=== PATIENT | male | born 1970 | race African-American/Black ===

== ENCOUNTER 2016-08-11 07:53 | Inpatient (IN) | payer OTHER ==
[~2016-08-11] VITALS: Ht 172.7 cm; Wt 100.0 kg
[~2016-08-11 07:53] MED LIST: DOXY100T PO
[2016-08-11 07:55] VITALS: BP 165/85; PULSE 96; RESP 18; TEMP 98.2; O2SAT 98
--- NOTE | 2016-08-11 08:10 | PD ---
HPI Chief Complaint: Complaint Time Seen by Provider: 08:10 Travel History International Travel<30 days: No Contact w/Intl Traveler<30days: No Traveled to known affect area: No History of Present Illness HPI 46-year-old male came to the emergency room with history of scrotal pain and swelling. Patient says that it has been draining a little since yesterday. There is foul-smelling discharge from the drainage. Patient has had the pain since which was 4 days ago. It has progressively worsened. Yesterday he had 2 syncopal episodes. Today he is in severe pain and was diaphoretic from the discomfort. Vital signs were otherwise stable. No history of fever or chills. Patient is having hard time walking because of the pain. The pain is just there but worsens when he sits or walks. It's a little bit better when he is laying flat. He has had these symptoms in the past that required incision and drainage. Patient is diabetic but says he does mostly diet control and not on any medications. He last ate at 5 this morning and he ate some hot dog. [facility] Past Medical History Narrative Medical List of his past medical history is reviewed from the nursing note. Hx Anticoagulant Therapy: No Blood Disorders: No Heart Rhythm Problems: No Cancer: No Cardiovascular Problems: No High Cholesterol: Yes (DIET CONTROLLED) Chemotherapy: No Chest Pain: No Congestive Heart Failure: No Cerebrovascular Accident: No Diabetes: No Diminished Hearing: No Endocrine: No Genitourinary: No Immune Disorder: No Musculoskeletal: No Neurologic: No Psychiatric: No Reproductive: Yes (SCROTAL ABCESSES X 3 MOS) Respiratory: Yes Migraines: No Seizures: No Thyroid Disease: No Past Surgical History Abdominal Surgery: No Ear Surgery: No Endocrine Surgery: No Eye Surgery: No Genitourinary Surgery: No Gynecologic Surgery: No Hysterectomy: No Oral Surgery: Yes (TOOTH SURGERY) Thoracic Surgery: No Other Surgery: Yes (ID LEFT TESTICLE/ BACK SURGERY ) Social History Alcohol Use: No Tobacco Use: Yes (3 CIGG/ DAY) Substance Use: Yes (MJ OCCASIONAL) Allergies-Medications (Allergen,Severity, Reaction): Coded Allergies: No Known Allergies (Verified , 10/13/15) Comments No known drug allergies. Reported Meds & Prescriptions Reported Meds & Active Scripts Active Narrative Medication List of his home medications are reviewed from the nursing note. Review of Systems Except as stated in HPI: all other systems reviewed are Neg Physical Exam Narrative GENERAL: Awake, alert, moderate to severe distress SKIN: Cool and diaphoretic HEAD: Atraumatic. Normocephalic. EYES: Pupils equal and round. No scleral icterus. No injection or drainage. ENT: No nasal bleeding or discharge. Mucous membranes pink and moist. NECK: Trachea midline. No JVD. CARDIOVASCULAR: Regular rate and rhythm. No murmur appreciated. RESPIRATORY: No accessory muscle use. Clear to auscultation. Breath sounds equal bilaterally. GASTROINTESTINAL: Abdomen soft, non-tender, nondistended. Hepatic and splenic margins not palpable. : Scrotal swelling with erythema and fluctuance on the left posterior aspect of the scrotum into the groin and medial aspect of the adjacent thigh. There is an opening posteriorly that is very tiny and oozing out some purulent drainage that is foul-smelling on pressure. Patient is very tender to touch in that area. MUSCULOSKELETAL: No obvious deformities. No clubbing. No cyanosis. No edema. NEUROLOGICAL: Awake and alert. No obvious cranial nerve deficits. Motor grossly within normal limits. Normal speech. PSYCHIATRIC: Appropriate mood and affect; insight and judgment normal. Data Data Last Documented VS Vital Signs Date Time Temp Pulse Resp B/P Pulse Ox O2 Delivery O2 Flow Rate FiO2 08/11/16 09:15 80 18 134/63 Room Air 08/11/16 07:55 98.2 98 Orders Complete Blood Count With Diff (08/11/16 08:23) Comprehensive Metabolic Panel (08/11/16 08:23) Lactic Acid Sepsis Protocol (08/11/16 08:23) Urinalysis - C+S If Indicated (08/11/16 08:23) Blood Culture (08/11/16 08:23) Wound Culture And Gram Stain (08/11/16 08:23) Chest, Single Ap (08/11/16 08:23) Blood Glucose (08/11/16 08:23) Ecg Monitoring (08/11/16 08:23) Iv Access Insert/Monitor (08/11/16:23) Oximetry (08/11/16 08:23) Oxygen Administration (08/11/16 08:23) Piperacil-Tazo 4.5 Gm Premix (Zosyn 4.5 (08/11/16 08:23) Vancomycin Inj (Vancomycin Inj) (08/11/16 08:23) Sodium Chlor 0.9% 1000 Ml Inj (Ns 1000 M (08/11/16 08:23) Sodium Chlor 0.9% 1000 Ml Inj (Ns 1000 M (08/11/16 08:23) Sodium Chlor 0.9% 1000 Ml Inj (Ns 1000 M (08/11/16 08:23) Ct Pelvis W Iv Contrast(Rout) (08/11/16 ) Morphine Inj (Morphine Inj) (08/11/16 08:45) Ondansetron Inj (Zofran Inj) (08/11/16 08:45) Consult Urology (08/11/16 ) Diet Npo (08/11/16 Breakfast) Sodium Chlor 0.9% 1000 Ml Inj (Ns 1000 M (08/11/16 09:45) ^ Consent (08/11/16 09:40) (Hub Use Only)Inp Phy Cons/Ref (08/11/16 ) Admit To Inpatient (08/11/16 10:12) Code Status (08/11/16 10:12) Vital Signs (Adult) Q4H (08/11/16 10:12) Activity Bed Rest With Brp (08/11/16 10:12) Intake + Output ADIEL.QSHIFT (08/11/16 10:12) Basic Metabolic Panel (Bmp) (08/12/16 06:00) Complete Blood Count With Diff (08/12/16 06:00) Scd Bilateral/Knee High ADIEL.QSHIFT (08/11/16 10:12) Vancomycin Inj (Vancomycin Inj) (08/11/16 18:00) Admit Order (Ed Use Only) (08/11/16 10:13) Labs Laboratory Tests Test 08/11/16 08/11/16 08:45 10:05 White Blood Count 18.2 TH/MM3 Red Blood Count 4.37 MIL/MM3 Hemoglobin 13.4 GM/DL Hematocrit 40.0 % Mean Corpuscular Volume 91.7 FL Mean Corpuscular Hemoglobin 30.7 PG Mean Corpuscular Hemoglobin 33.4 % Concent Red Cell Distribution Width 12.9 % Platelet Count 630 TH/MM3 Mean Platelet Volume 7.0 FL Neutrophils (%) (Auto) 78.1 % Lymphocytes (%) (Auto) 10.7 % Monocytes (%) (Auto) 9.6 % Eosinophils (%) (Auto) 0.8 % Basophils (%) (Auto) 0.8 % Neutrophils # (Auto) 14.2 TH/MM3 Lymphocytes # (Auto) 2.0 TH/MM3 Monocytes # (Auto) 1.8 TH/MM3 Eosinophils # (Auto) 0.1 TH/MM3 Basophils # (Auto) 0.1 TH/MM3 CBC Comment DIFF FINAL Differential Comment Sodium Level 136 MEQ/L Potassium Level 4.1 MEQ/L Chloride Level 97 MEQ/L Carbon Dioxide Level 30.8 MEQ/L Anion Gap 8 MEQ/L Blood Urea Nitrogen 11 MG/DL Creatinine 1.10 MG/DL Estimat Glomerular Filtration 88 ML/MIN Rate Random Glucose 173 MG/DL Lactic Acid Level 1.5 mmol/L Calcium Level 8.9 MG/DL Total Bilirubin 0.7 MG/DL Aspartate Amino Transf 11 U/L (AST/SGOT) Alanine Aminotransferase 21 U/L (ALT/SGPT) Alkaline Phosphatase 94 U/L Total Protein 8.9 GM/DL Albumin 3.4 GM/DL Urine Color YELLOW Urine Turbidity CLEAR Urine pH 7.0 Urine Specific Edwards 1.014 Urine Protein TRACE mg/dL Urine Glucose (UA) NEG mg/dL Urine Ketones NEG mg/dL Urine Occult Blood NEG Urine Nitrite NEG Urine Bilirubin NEG Urine Urobilinogen 2.0 MG/DL Urine Leukocyte Esterase NEG Urine WBC 1 /hpf Urine Squamous Epithelial <1 /hpf Cells Microscopic Urinalysis Comment CATH-CULT NOT IND MDM Medical Decision Making Medical Screen Exam Complete: Yes Emergency Medical Condition: Yes Medical Record Reviewed: Yes Differential Diagnosis Scrotal abscess, Christian gangrene, hydradenitis with abscess Narrative Course 9:06 AM awaiting for the blood test results. I discussed this case with the urologist metal bonder Dr. Diaz and I have expressed to him my concerns about the severity of the infection and the patient being diabetic. In my opinion the abscess should be incised and drained as soon as possible. He wanted a CAT scan and ultrasound of the scrotum. A CAT scan has been ordered and awaiting for it to be done and resulted. Patient is kept nothing by mouth. Awaiting for the blood test results. His white count came back in its 18,000 with a significant left shift. I have ordered IV fluid and antibiotic as per sepsis protocol at this point. Patient will need to be admitted and I have expressed this to him. He understands. Waiting for the chemistry resulted prior to the admission. Critical Care Narrative Aggregate critical care time was 30 minutes. Time to perform other separately billable procedures was not included in the critical care time. My time did not include minutes spent treating any other patients simultaneously or on activities that did not directly contribute to the patient's treatment. The services I provided to this patient were to treat and/or prevent clinically significant deterioration that could result in: Scrotal abscess, sepsis protocol I provided critical care services requiring my management, as noted below: Chart data review, documentation time, medication orders and management, vital sign assessments/reviewing monitor data, ordering and reviewing lab tests, ordering and interpreting/reviewing x-rays and diagnostic studies, care of the patient and discussion of the patient with the admitting physicians. Procedures EKG Prior to Arrival: No Sepsis Criteria SIRS Criteria (2 or more): Heart rate over 90, WBC > 76691, < 4000 or > 10% bands Sepsis Criteria (SIRS+source): Infect source susp/known Diagnosis Primary Impression: Scrotal abscess Additional Impression: Sepsis Qualified Code: A41.9 - Sepsis, due to unspecified organism Admitting Information Admitting Physician Requests: Kwesi Earl MD Aug 11, 2016 08:10
[2016-08-11] MEDS ORDERED: SODIUM CHLOR 0.9% 1000 ML INJ 1,000 ML IV ONE ×3 (08:23)
[2016-08-11] MEDS ORDERED: PIPERACIL-TAZO 4.5 GM PREMIX 100 ML IV STA (08:23)
[2016-08-11] MEDS ORDERED: VANCOMYCIN INJ 1,000 MG in SODIUM CHLOR 0.9% 250 ML INJ 250 ML IV STA (08:23)
[2016-08-11] MEDS ORDERED: MORPHINE SULFATE 4 MG/ML INJ IV PUSH ONE (08:45)
[2016-08-11] MEDS ORDERED: ONDANSETRON HCL 4 MG/2 ML VIAL IV PUSH ONE (08:45)
--- NOTE | 2016-08-11 09:02 | RADRPT ---
EXAM DATE/TIME: 08/11/2016 08:42 [facility] COMPARISON: CHEST SINGLE AP, August 20, 2015, 17:59. INDICATIONS : Cough and shortness of breath. MEDICAL HISTORY : Right scrotal abscess. SURGICAL HISTORY : ENCOUNTER: Initial ACUITY: 3 days PAIN SCORE: 0/10 LOCATION: Bilateral chest FINDINGS: A single view of the chest demonstrates the lungs to be symmetrically aerated without evidence of mas s, infiltrate or effusion. There is stable eventration of the left hemidiaphragm. The cardiomediastin al contours are unremarkable. Osseous structures are intact. No new significant changes. CONCLUSION: No acute disease. No significant change has occurred. Cedric Cardozo MD on August 11, 2016 at 9:00 Board Certified Radiologist. This report was verified electronically.
[2016-08-11 09:14] LABS: AUTOMATED NEUTROPHIL # 14.2 TH/MM3 (1.8-7.7); BASOPHIL # 0.1 TH/MM3 (0-0.2); BASOPHIL % 0.8 % (0.0-2.0); EOSINOPHIL # 0.1 TH/MM3 (0-0.4); EOSINOPHIL % 0.8 % (0.0-4.0); HEMO FLAGS DIFF FINAL; LYMPH % 10.7 % (9.0-44.0); MEAN CELL VOLUME 91.7 FL (80.0-100.0); MEAN CORPUSCULAR HEMOGLOBIN 30.7 PG (27.0-34.0); MEAN CORPUSCULAR HGB CONC 33.4 % (32.0-36.0); MONO % 9.6 % (0.0-8.0); NEUT % 78.1 % (16.0-70.0); PLATELET COUNT 630 TH/MM3 (150-450); RED BLOOD COUNT 4.37 MIL/MM3 (4.50-5.90); RED CELL DISTRIBUTION WIDTH 12.9 % (11.6-17.2); WHITE BLOOD COUNT 18.2 TH/MM3 (4.0-11.0)
[2016-08-11 09:15] VITALS: BP 134/63; PULSE 80; RESP 18
[2016-08-11 09:36] LABS: ANION GAP 8 MEQ/L (5-15); AST (GOT) 11 U/L (15-37); BICARBONATE 30.8 MEQ/L (21.0-32.0); BLOOD UREA NITROGEN 11 MG/DL (7-18); CHLORIDE 97 MEQ/L (98-107); GLOMERULAR FILTRATION RATE 88 ML/MIN (>89); POTASSIUM 4.1 MEQ/L (3.5-5.1); SODIUM (NA) 136 MEQ/L (136-145)
[2016-08-11 09:39] LABS: ALKALINE PHOSPHATASE 94 U/L (45-117); ALT (GPT) 21 U/L (12-78); TOTAL BILIRUBIN ADULT 0.7 MG/DL (0.2-1.0)
[2016-08-11 10:23] LABS: BLOOD, URINE NEG (NEG); GLUCOSE,URINE NEG (NEG); KETONE, URINE NEG (NEG); NITRITE,URINE NEG (NEG); SQUAMOUS EPITHELIAL CELL URINE <1 /hpf (0-5); URINE COLOR YELLOW (YELLW/STRAW)
[2016-08-11 10:24] LABS: COMMENT (UR) CATH-CULT NOT IND; CULTURE IF INDICATED CATH CULTURE NOT IND
--- NOTE | 2016-08-11 10:51 | MB ---
cc: FÉLIX WEBB MD DATE OF CONSULTATION: 08/11/2016 REASON FOR CONSULTATION Left scrotal abscess. HISTORY OF PRESENT ILLNESS The patient is a 46-year-old male with history of diabetes, who presented to the emergency room with 36-hour history of worsening scrotal pain, swelling and drainage. The patient went to the movie theatre last night and following the movie theatre he experienced two syncopal episodes. He also felt he had chills, shakes and fevers and he felt drainage in his pants. Due to these findings the patient came to the ER for further evaluation. On further discussion with the patient he was found to have pain for the last 4 days and has progressively worsened. Today his pain he describes as a 10/10 and is extremely uncomfortable. The pain is so bad that he has a hard time walking but is improved while being immobile. He has had a prior incision and drainage of his scrotum in the past approximately 2 years ago. He has also history of hidradenitis suppurativa. His diabetes is currently diet controlled. He denies history of kidney stones or family history of genitourinary malignancies. Denies flank pain, abdominal pain, nausea, vomiting at this time. PAST MEDICAL HISTORY Significant for: 1. Hidradenitis. 2. History of scrotal abscess. 3. History of diabetes. 4. Dyslipidemia. PAST SURGICAL HISTORY 1. Incision and drainage of left scrotal abscess. 2. He has had back surgery. 3. Tooth surgery. SOCIAL HISTORY Smokes three cigarettes a day. Occasional marijuana use but denies alcohol use. ALLERGIES NO KNOWN DRUG ALLERGIES. REVIEW OF SYSTEMS See HPI, otherwise all systems reviewed otherwise are negative. FAMILY HISTORY Denies family history of prostate cancer or urolithiasis. PHYSICAL EXAMINATION VITAL SIGNS: Temperature is 98.2, pulse 96, respiratory rate 18, BP 165/85, sating 98% on room air. GENERAL: He is alert and oriented x3, in mild distress, pleasant, cooperative gentleman who appears stated age. HEAD: Normocephalic, atraumatic. EYES: No scleral icterus. Extraocular muscles intact. ENT: External nares are normal. No sinus drainage. External hearing is normal. NECK: The neck is supple. Trachea is midline. No JVD. CARDIOVASCULAR: Regular rate and rhythm. No murmurs, gallops or rubs. LUNGS: Clear to auscultation bilaterally. No wheezes, rales or rhonchi. ABDOMEN: Soft, nontender, nondistended. Positive bowel sounds. GENITOURINARY: Penis is uncircumcised. His left hemiscrotum is swollen and tender with a foul-smelling purulent drainage coming from the inferior portion, previous scars from incision and drainage are noted. RECTAL: Exam deferred at this time. EXTREMITIES: Nontender, no clubbing, cyanosis or edema. SKIN: No rashes or ulcers. PSYCHE: Normal affect. LABORATORY DATA Labs show a white count 18.2, hemoglobin 13.4, hematocrit 40.0, platelet count 630, sodium 136, potassium 4.1, chloride 97, bicarb 30.8, creatinine 1.10, glucose 173. ASSESSMENT The patient is a 46-year-old diabetic male with a history of scrotal abscess. He presents with worsening scrotal pain, swelling and drainage from his left scrotum consistent with a recurrent scrotal abscess. PLAN Will make the patient n.p.o. Will obtain CT of the abdomen and pelvis without contrast. I discussed management options with him including conservative management with IV antibiotics versus bedside incision and drainage versus incision and drainage under general anesthetic. Despite the risks the patient elected to proceed with excision and drainage under general anesthetic in the operating room. I discussed the risks, benefits, alternatives with him regarding the procedure including recurrence of abscess, need for additional procedures and the anesthetic risk. He understood all these risks, all questions were answered, informed consent was obtained. Félix Webb MD EMF/TLBreanna /9:45 AM /10:25 AM
[2016-08-11] MEDS ORDERED: IOHEXOL 350 MG/ML 10 ML VIAL (for RAD DIAG) IV ONE (10:55)
--- NOTE | 2016-08-11 11:03 | RADRPT ---
EXAM DATE/TIME: 08/11/2016 10:40 [facility] COMPARISON: No previous studies available for comparison. INDICATIONS : Testicular swelling and pain. IV CONTRAST: 93 cc Omnipaque 350 (iohexol) IV ORAL CONTRAST: No oral contrast ingested. RADIATION DOSE: 17.17 CTDIvol (mGy) MEDICAL HISTORY : None SURGICAL HISTORY : None. ENCOUNTER: Initial ACUITY: 2 days PAIN SCALE: 10/10 LOCATION: Bilateral pelvis TECHNIQUE: Volumetric scanning of the pelvis was performed. Using automated exposure control and adjustment of t he mA and/or kV according to patient size, radiation dose was kept as low as reasonably achievable to obtain optimal diagnostic quality images. FINDINGS: BOWEL/MESENTERY: The visualized small and large bowel demonstrate no acute abnormality. There is no free fluid. No osmin dence of free air. There stool throughout colon. BLADDER: There is no wall thickening or mass. RETROPERITONEUM: There is no aneurysm or lymphadenopathy. REPRODUCTIVE: Prostate gland is within normal limits for size. There is some nonspecific edema involving the wall o f the left scrotum. INGUINAL: There appears to be some nonspecific adenopathy in the inguinal areas bilaterally. The largest right inguinal lymph node measures 2.7 cm. The largest left inguinal lymph node measures 3.0 cm. MUSCULOSKELETAL: Within normal limits for patient age. CONCLUSION: 1. Nonspecific bilateral inguinal adenopathy. 2. Nonspecific edema in the region of the left scrotal sac. Board Certified Radiologist. This report was verified electronically. Cedric Cardozo MD on August 11, 2016 at 10:59
--- NOTE | 2016-08-11 11:08 | HHI.HP ---
H[facility] Admission Diagnosis scrotal abscess, sepsis Diagnoses: Chief Complaint: Scrotal pain Travel History International Travel<30 Days: No Contact w/Intl Traveler <30 Da: No Traveled to Known Affected Are: No History of Present Illness This is a 46-year-old male with history of diabetes mellitus, hidradenitis suppurativa and previous scrotal abscess presenting with a four-day history of progressive scrotal pain. This started 4 days ago with a swollen centimeter bump which he thought was from a bug bite. 2 cm swelling progressively increased, double in size after 1 day, which caused difficulty walking associated with severe pain, 10 over 10, nonradiating, but when associated dizziness and syncopal episodes, chills, subjective fever and diaphoresis. He has a cough about 2 weeks ago which is better, no shortness of breath. He denies any urinary symptoms including hematuria, dysuria, frequency or urgency. Yesterday, left scrotal swelling became more painful, now about more than 6 cm and started draining hence patient decided to go to the hospital. Of note, he had a similar episode 3 years ago status post incision and drainage. Review of Systems ROS Limitations: Other (All other pertinent systems were reviewed and are negative.) Past Family Social History Past Medical History Hidradenitis suppurativa Scrotal abscess Diet-controlled diabetes mellitus Dyslipidemia Past Surgical History Incision and drainage of left scrotal abscess. back surgery. Tooth surgery. Reported Medications None Allergies: Coded Allergies: No Known Allergies (Verified , 10/13/15) Family History No cardiac history in the family. Family history reviewed, noncontributory Social History Smokes about 3 cigarettes every day for the last 14 years, does not drink alcohol, uses weed every 4-5 months. Physical Exam Vital Signs Vital Signs Date Time Temp Pulse Resp B/P Pulse Ox O2 Delivery O2 Flow Rate FiO2 08/11/16 09:15 80 18 134/63 Room Air 08/11/16 07:55 98.2 96 18 165/85 98 Room Air Physical Exam GENERAL: This is a well-nourished, well-developed patient, in no apparent distress. SKIN: No rashes, ecchymoses or lesions. Cool and dry. HEAD: Atraumatic. Normocephalic. No temporal or scalp tenderness. EYES: Pupils equal round and reactive. Extraocular motions intact. No scleral icterus. No injection or drainage. ENT: Nose without bleeding, purulent drainage or septal hematoma. Throat without erythema, tonsillar hypertrophy or exudate. Uvula midline. Airway patent. NECK: Trachea midline. No JVD or lymphadenopathy. Supple, nontender, no meningeal signs. CARDIOVASCULAR: Regular rate and rhythm without murmurs, gallops, or rubs. RESPIRATORY: Clear to auscultation. Breath sounds equal bilaterally. No wheezes , rales, or rhonchi. GASTROINTESTINAL: Abdomen soft, non-tender, obese, nondistended. No hepato- splenomegaly, or palpable masses. No guarding. : Severely swollen scrotum especially the left, positive for severe tenderness , erythema, and yellowish to greenish drainage. MUSCULOSKELETAL: Extremities without clubbing, cyanosis, or edema. No joint tenderness, effusion, or edema noted. No calf tenderness. Negative Homans sign bilaterally. NEUROLOGICAL: Awake and alert. Cranial nerves II through XII intact. Motor and sensory grossly within normal limits. Five out of 5 muscle strength in all muscle groups. Normal speech. Laboratory Laboratory Tests Test 08/11/16 08/11/16 08:45 10:05 White Blood Count 18.2 Red Blood Count 4.37 Hemoglobin 13.4 Hematocrit 40.0 Mean Corpuscular Volume 91.7 Mean Corpuscular Hemoglobin 30.7 Mean Corpuscular Hemoglobin 33.4 Concent Red Cell Distribution Width 12.9 Platelet Count 630 Mean Platelet Volume 7.0 Neutrophils (%) (Auto) 78.1 Lymphocytes (%) (Auto) 10.7 Monocytes (%) (Auto) 9.6 Eosinophils (%) (Auto) 0.8 Basophils (%) (Auto) 0.8 Neutrophils # (Auto) 14.2 Lymphocytes # (Auto) 2.0 Monocytes # (Auto) 1.8 Eosinophils # (Auto) 0.1 Basophils # (Auto) 0.1 CBC Comment DIFF FINAL Differential Comment Sodium Level 136 Potassium Level 4.1 Chloride Level 97 Carbon Dioxide Level 30.8 Anion Gap 8 Blood Urea Nitrogen 11 Creatinine 1.10 Estimat Glomerular Filtration 88 Rate Random Glucose 173 Lactic Acid Level 1.5 Calcium Level 8.9 Total Bilirubin 0.7 Aspartate Amino Transf 11 (AST/SGOT) Alanine Aminotransferase 21 (ALT/SGPT) Alkaline Phosphatase 94 Total Protein 8.9 Albumin 3.4 Urine Color YELLOW Urine Turbidity CLEAR Urine pH 7.0 Urine Specific Simpson 1.014 Urine Protein TRACE Urine Glucose (UA) NEG Urine Ketones NEG Urine Occult Blood NEG Urine Nitrite NEG Urine Bilirubin NEG Urine Urobilinogen 2.0 Urine Leukocyte Esterase NEG Urine WBC 1 Urine Squamous Epithelial <1 Cells Microscopic Urinalysis Comment CATH-CULT NOT IND Date/Time Procedure Status Source Growth 08/11/16 08:45 Aerobic Blood Culture Received Blood Peripheral Pending 08/11/16 08:45 Anaerobic Blood Culture Received Blood Peripheral Pending 08/11/16 08:35 Gram Stain Received Wound Scrotum Pending 08/11/16 08:35 Wound Culture Received Wound Scrotum Pending Result Diagram: 08/11/1684408/[id number] Imaging Last Impressions Chest X-Ray 08/11/16822 Signed Impressions: Service Date/Time: Thursday, August 11, 2016 08:42 - CONCLUSION: No acute disease. No significant change has occurred. Cedric Cardozo MD Assessment and Plan Assessment and Plan This is a 46-year-old male presenting with scrotal abscess Scrotal abscess- likely with mild sepsis with leukocytosis and tachycardia. Start IVF, start vancomycin, start ceftriaxone. Consult urology, for possible incision and drainage today. Check CT scan of the abdomen, pelvis and scrotum. Pain control with oral and intravenous narcotics. Follow-up culture results. Urinalysis unremarkable, IVF for now. Chest x-ray personally reviewed is unremarkable. Borderline diabetes-check hemoglobin A1c, sliding scale insulin for now. DVT prophylaxis: Start after surgery Physician Certification 2 Midnight Certification Type: Admission for Inpatient Services Order for Inpatient Services The services are ordered in accordance with Medicare regulations or non- Medicare payer requirements, as applicable. In the case of services not specified as inpatient-only, they are appropriately provided as inpatient services in accordance with the 2-midnight benchmark. Estimated LOS (days): 2 days is the estimated time the patient will need to remain in the hospital, assuming treatment plan goals are met and no additional complications. Post-Hospital Plan: Home Daniel Gray MD Aug 11, 2016 11:07
[2016-08-11] MEDS ORDERED: oxyCODONE/ACETAMINOPHEN 5 MG/325 MG TAB PO PRN (11:15)
[2016-08-11] MEDS ORDERED: ACETAMINOPHEN 325 MG TAB PO PRN (11:15)
[2016-08-11] MEDS ORDERED: NALOXONE HCL 0.4 MG/ML AMP IV PRN (11:15)
[2016-08-11] MEDS ORDERED: Vancomycin Consult Pharmacy 1 EA OTHER SCH (11:15)
[2016-08-11] MEDS: SODIUM CHLOR 0.9% 1000 ML INJ 1,000 ML IV SCH ×2 (11:20→17:07)
[2016-08-11] MEDS: cefTRIAXone INJ 1,000 MG in SODIUM CHLORIDE 0.9% INJ 100 ML IV SCH (11:56)
[2016-08-11] MEDS ORDERED: PROPOFOL 200 MG/20 ML AMP IV ONE (12:10)
[2016-08-11] MEDS ORDERED: ONDANSETRON HCL 4 MG/2 ML VIAL IV ONE (12:10)
[2016-08-11] MEDS ORDERED: LACTATED RINGER'S 1000 ML INJ 1,000 ML IV ONE (12:10)
[2016-08-11 12:20] VITALS: BP 143/63; PULSE 67; RESP 15; O2SAT 97
[2016-08-11 13:11] VITALS: BP 133/72; PULSE 78; RESP 17; TEMP 96.8; O2SAT 98
[2016-08-11] MEDS ORDERED: METOCLOPRAMIDE HCL 10 MG/2 ML VIAL ONE ×2 (13:35→13:41)
[2016-08-11] MEDS ORDERED: ACETAMINOPHEN 1000 MG/100 ML VIAL IV ONE (13:35)
[2016-08-11] MEDS ORDERED: FAMOTIDINE 20 MG/2 ML VIAL ONE ×2 (13:36→13:41)
[2016-08-11] MEDS ORDERED: DEXAMETHASONE SOD PHOS 4 MG/ML VIAL ONE (13:41)
[2016-08-11] MEDS ORDERED: SUGAMMADEX SODIUM 200 MG/2 ML VIAL IV PUSH ONE ×2 (13:43)
[2016-08-11] MEDS ORDERED: MIDAZOLAM HCL 2 MG/2 ML VIAL ONE (14:47)
[2016-08-11] MEDS ORDERED: fentaNYL CITRATE 250 MCG/5 ML AMP ONE (14:47)
[2016-08-11] MEDS ORDERED: DO NOT ADM ANY ANTICOAGULANT DRUGS XX PRN (15:00)
[2016-08-11] MEDS: INSULIN ASPART SUPPLEMENTAL SCALE SQ SCH ×2 (15:00→22:36)
[2016-08-11] MEDS: VANCOMYCIN INJ 1,500 MG in SODIUM CHLORID 0.9% 500 ML INJ 500 ML IV SCH (17:07)
[2016-08-11] MEDS: MORPHINE SULFATE 4 MG/ML INJ IV PRN (19:50)
[2016-08-11 20:00] VITALS: BP 127/66; PULSE 67; RESP 20; TEMP 96; O2SAT 97
[2016-08-12] VITALS (7 sets, daily range): BP systolic 125–154; BP diastolic 62–80; PULSE 62–75; RESP 16–21; TEMP 96–97.8; O2SAT 93–100
[2016-08-12] MEDS: MORPHINE SULFATE 4 MG/ML INJ IV PRN ×6 (00:55→22:36)
[2016-08-12] MEDS: SODIUM CHLOR 0.9% 1000 ML INJ 1,000 ML IV SCH ×3 (04:33→16:29)
[2016-08-12] MEDS: VANCOMYCIN INJ 1,500 MG in SODIUM CHLORID 0.9% 500 ML INJ 500 ML IV SCH ×2 (04:33→16:29)
[2016-08-12 05:03] LABS: AUTOMATED NEUTROPHIL # 16.7 TH/MM3 (1.8-7.7); BASOPHIL # 0.1 TH/MM3 (0-0.2); BASOPHIL % 0.3 % (0.0-2.0); EOSINOPHIL % 0.1 % (0.0-4.0); HEMATOCRIT 36.3 % (39.0-51.0); HEMO FLAGS DIFF FINAL; LYMPH % 8.7 % (9.0-44.0); LYMPHOCYTE # 1.7 TH/MM3 (1.0-4.8); MEAN CELL VOLUME 91.4 FL (80.0-100.0); MEAN CORPUSCULAR HEMOGLOBIN 29.8 PG (27.0-34.0); MEAN CORPUSCULAR HGB CONC 32.6 % (32.0-36.0); MONO % 6.4 % (0.0-8.0); NEUT % 84.5 % (16.0-70.0); PLATELET COUNT 586 TH/MM3 (150-450); RED BLOOD COUNT 3.97 MIL/MM3 (4.50-5.90); RED CELL DISTRIBUTION WIDTH 13.1 % (11.6-17.2); WHITE BLOOD COUNT 19.8 TH/MM3 (4.0-11.0)
[2016-08-12 05:23] LABS: BICARBONATE 27.2 MEQ/L (21.0-32.0); POTASSIUM 4.6 MEQ/L (3.5-5.1)
[2016-08-12] MEDS: INSULIN ASPART SUPPLEMENTAL SCALE SQ SCH ×4 (05:28→21:00)
[2016-08-12] MEDS: cefTRIAXone INJ 1,000 MG in SODIUM CHLORIDE 0.9% INJ 100 ML IV SCH (12:22)
--- NOTE | 2016-08-12 17:52 | HHI.PR ---
Subjective Remarks f/u scrotal abscess s/p I&D yesterday, pain more controlled now, afebrile, no sob or diarrhea Objective Vitals Vital Signs Date Time Temp Pulse Resp B/P Pulse Ox O2 Delivery O2 Flow Rate FiO2 08/12/16 16:00 96.3 62 17 154/80 96 08/12/16 12:00 96.4 75 17 125/72 95 08/12/16 08:42 99 21 08/12/16 07:26 97.1 67 16 141/78 95 08/12/16 04:00 96.0 68 21 138/62 100 08/12/16 00:00 96.0 71 20 141/68 93 08/11/16 20:59 Nasal Cannula 08/11/16 20:00 96.0 67 20 127/66 97 08/11/16 18:09 17 I/O 08/11/16 08/11/16 08/11/16 08/12/16 08/12/16 08/12/16 07:00 15:00 23:00 07:00 15:00 23:00 Intake Total 250 ml 940 ml 1144 ml 1592 ml Output Total 200 ml 300 ml 650 ml 950 ml Balance 50 ml 640 ml 494 ml 642 ml Intake Oral 200 ml 240 ml 240 ml 960 ml IV Total 50 ml 700 ml 904 ml 632 ml Output Urine Total 200 ml 300 ml 650 ml 950 ml # Bowel Movements 0 0 0 0 Result Diagram: 08/12/16 0325 08/12/165 Objective Remarks Not in distress, well-nourished, looks stated age PERRL, pink conjunctiva without injection, anicteric Nose without bleeding, airway patent, oropharynx clear Supple neck, no masses or thyromegaly, trachea midline Normal rate and regular rhythm, no murmurs gallops or rubs appreciated. Clear to auscultation and symmetric bilaterally, normal respiratory effort. Normal bowel sounds, soft, non-tender, nondistended, no guarding. Extremities without clubbing, cyanosis, or edema. No rash of generalized distribution. Skin is warm and dry. AAO x3, no cranial nerve deficits, moves all 4 extremities, no focal neurologic deficits Normal mood, appropriate affect : less swollen scrotum , mild tenderness A/P Assessment and Plan This is a 46-year-old male presenting with scrotal abscess Scrotal abscess- likely with mild sepsis with leukocytosis and tachycardia. Status post incision and drainage per urology. Continue vancomycin and ceftriaxone. CT scan of the pelvis versus a reviewed showed adenopathy nonspecific edema in the left scrotal sac. Continue Pain control with oral and intravenous narcotics. Follow-up wound culture results. Urinalysis unremarkable, IVF for now. Blood culture grew Staphylococcus epidermidis. Borderline diabetes-check hemoglobin A1c, sliding scale insulin for now. DVT prophylaxis: Start after surgery Daniel Gray MD Aug 12, 2016 17:52
[2016-08-12 21:51] LABS: HEMOGLOBIN A1a 0.8 %; HEMOGLOBIN A1b 1.8 %; HEMOGLOBIN Ao 84.8 %; HEMOGLOBIN LA1C 2.2 %; HEMOGLOBIN P3 3.8 %
[2016-08-13] VITALS: BP 138/72; PULSE 67; RESP 20; TEMP 98.2; O2SAT 96
[2016-08-13] MEDS: SODIUM CHLOR 0.9% 1000 ML INJ 1,000 ML IV SCH ×3 (03:51→17:01)
[2016-08-13 04:00] VITALS: BP 121/66; PULSE 69; RESP 20; TEMP 98.4; O2SAT 94
[2016-08-13] MEDS: INSULIN ASPART SUPPLEMENTAL SCALE SQ SCH ×4 (05:37→20:54)
[2016-08-13] MEDS: VANCOMYCIN INJ 1,500 MG in SODIUM CHLORID 0.9% 500 ML INJ 500 ML IV SCH (05:38)
[2016-08-13] MEDS: MORPHINE SULFATE 4 MG/ML INJ IV PRN ×3 (05:38→17:01)
[2016-08-13] MEDS ORDERED: PHARMACY ORDERED LAB XX ONE (05:45)
[2016-08-13 08:00] VITALS: BP 146/68; PULSE 73; RESP 17; TEMP 97.1; O2SAT 96
--- NOTE | 2016-08-13 08:43 | HHI.PR ---
Subjective Remarks Follow-up for scrotal abscess Feels better, no fever, scrotal pain better, no further discharge. No nausea or vomiting. Objective Vitals Vital Signs Date Time Temp Pulse Resp B/P Pulse Ox O2 Delivery O2 Flow Rate FiO2 08/13/16 04:00 98.4 69 20 121/66 94 08/13/16 00:00 98.2 67 20 138/72 96 08/12/16 20:00 97.8 66 20 141/69 95 08/12/16 16:00 96.3 62 17 154/80 96 08/12/16 12:00 96.4 75 17 125/72 95 08/12/16 08:42 99 21 I/O 08/12/16 08/12/16 08/12/16 08/13/16 08/13/16 08/13/16 07:00 15:00 23:00 07:00 15:00 23:00 Intake Total 1144 ml 1592 ml 480 ml 700 ml 800 ml Output Total 650 ml 950 ml 650 ml 1600 ml Balance 494 ml 642 ml -170 ml -900 ml 800 ml Intake Oral 240 ml 960 ml 480 ml 700 ml IV Total 904 ml 632 ml 800 ml Output Urine Total 650 ml 950 ml 650 ml 1600 ml # Bowel Movements 0 0 0 0 Result Diagram: 08/12/16 0325 08/13/16 0351 Objective Remarks Not in distress, well-nourished, looks stated age PERRL, pink conjunctiva without injection, anicteric Nose without bleeding, airway patent, oropharynx clear Supple neck, no masses or thyromegaly, trachea midline Normal rate and regular rhythm, no murmurs gallops or rubs appreciated. Clear to auscultation and symmetric bilaterally, normal respiratory effort. Normal bowel sounds, soft, non-tender, nondistended, no guarding. Extremities without clubbing, cyanosis, or edema. No rash of generalized distribution. Skin is warm and dry. AAO x3, no cranial nerve deficits, moves all 4 extremities, no focal neurologic deficits Normal mood, appropriate affect : less swollen scrotum , mild tenderness Procedures Status post incision and drainage of scrotal abscess 08/11/16 A/P Assessment and Plan This is a 46-year-old male presenting with scrotal abscess Sepsis secondary to Scrotal abscess- Status post incision and drainage per urology. Continue vancomycin and ceftriaxone. Vancomycin subtherapeutic, monitor vancomycin levels, BMP. CT scan of the pelvis versus a reviewed showed adenopathy nonspecific edema in the left scrotal sac. Continue Pain control with oral and intravenous narcotics. Follow-up wound culture results, Gram stain showed gram-positive cocci in pairs and rods. Urinalysis unremarkable, stop IVF. Blood culture grew Staphylococcus epidermidis, one out of 4 bottles, likely contaminant. Recheck CBC tomorrow. Rule out bacteremia-repeat blood culture, initial blood culture grew Staphylococcus epidermidis, one out of 4 bottles, likely contaminant. Diabetes mellitus-hemoglobin A1c 6.2, start metformin, sliding scale insulin. DVT prophylaxis: SCDs. Discharge Planning Discharge once cleared by urology and wound culture results are back. Daniel Gray MD Aug 13, 2016 08:43
[2016-08-13] MEDS: metFORMIN HCL 500 MG TAB PO SCH ×2 (09:10→17:01)
[2016-08-13 12:00] VITALS: BP 134/64; PULSE 68; RESP 17; TEMP 99.2; O2SAT 98
[2016-08-13] MEDS: cefTRIAXone INJ 1,000 MG in SODIUM CHLORIDE 0.9% INJ 100 ML IV SCH (12:18)
--- NOTE | 2016-08-13 13:02 | MP ---
cc: RICKI WEBB MD DATE OF SURGERY 08/11/2016 PREOPERATIVE DIAGNOSIS Scrotal abscess POSTOPERATIVE DIAGNOSIS Scrotal abscess PROCEDURE PERFORMED Incision drainage of scrotal abscess. SURGEON Ricki eWbb MD ANESTHESIA General COMPLICATIONS None PREOPERATIVE ANTIBIOTICS 1. Rocephin 1 gram IV 2. Vancomycin 1.5 grams IV DRAINS None SPECIMENS Aerobic/anaerobic culture for growth BLOOD LOSS 5 mL DISPOSITION To recovery INDICATIONS The patient is a 46-year-old -[place] male with a history of diabetes with previous scrotal abscess in the past who presented to the ER earlier this morning with complaints of scrotal pain, swelling and drainage from the inferior portion of the scrotum. He states this was similar to his abscess he had several years ago which required incision and drainage in the OR. On exam, he is found to have diffuse scrotal edema as well as a purulent discharge from the inferior and lateral portion of the left garcia-scrotum which included a foul odor. CT of his pelvis without contrast was done which showed just nonspecific edema, however due to this his physical exam findings and drainage, we decided he should undergo incision and drainage of his scrotal abscess. After the risks, benefits and alternative explained, the patient wished to proceed and informed consent was obtained. DETAILS OF THE PROCEDURE The patient was properly identified and brought back to the operating room and laid supine on the operating table. A formal time-out was performed under the direction of anesthesiology. After the patient induced under general aesthetic, the patient had received both one gram of Rocephin and 1-1/2 grams of vancomycin earlier, therefore preoperative antibiotics were not indicated. He was then placed in the dorsolithotomy position, prepped and draped in a normal sterile surgical fashion. The scrotum was carefully examined once up in the lithotomy position. There was a small 1/2 cm opening on the lateral inferior portion of the left median scrotum that was draining purulent material. Using an 11 blade scalpel, I then extended this incision to approximately 1-1/2 cm. A copious amount of purulent material was then drained. Aerobic and anaerobic cultures were then taken. There was a small cavity that was developed. This was opened up with a hemostat. At this time, there was no evidence of further other drainage. There was some bleeding which was good for wound healing. This wound was then packed with half-inch Iodoform dressing applied with gauze, ABD's and mesh underwear. This concluded the procedure. The patient was extubated and sent to recovery in stable condition to be transferred back to the floor for routine postoperative care. Recommend continuing antibiotics and dressing changes as needed. MD SOHA Calderon/FÉLIX /2:30 PM /12:51 PM
[2016-08-13 16:00] VITALS: BP 122/60; PULSE 70; RESP 16; TEMP 98.4; O2SAT 95
[2016-08-13] MEDS: VANCOMYCIN INJ 2,000 MG in SODIUM CHLORID 0.9% 500 ML INJ 500 ML IV SCH (17:01)
[2016-08-13 20:00] VITALS: BP 139/94; PULSE 80; RESP 20; TEMP 97.8; O2SAT 98
[2016-08-14] VITALS: BP 142/90; PULSE 76; RESP 20; TEMP 98.2; O2SAT 99
[2016-08-14] MEDS: MORPHINE SULFATE 4 MG/ML INJ IV PRN ×2 (02:28→08:52)
[2016-08-14] MEDS: SODIUM CHLOR 0.9% 1000 ML INJ 1,000 ML IV SCH ×3 (02:36→16:37)
[2016-08-14] MEDS: VANCOMYCIN INJ 2,000 MG in SODIUM CHLORID 0.9% 500 ML INJ 500 ML IV SCH ×2 (05:42→16:32)
[2016-08-14] MEDS: INSULIN ASPART SUPPLEMENTAL SCALE SQ SCH ×4 (05:43→21:00)
[2016-08-14 07:14] LABS: AUTOMATED NEUTROPHIL # 9.4 TH/MM3 (1.8-7.7); BASOPHIL # 0.1 TH/MM3 (0-0.2); BASOPHIL % 0.9 % (0.0-2.0); EOSINOPHIL # 0.3 TH/MM3 (0-0.4); EOSINOPHIL % 1.8 % (0.0-4.0); HEMATOCRIT 36.7 % (39.0-51.0); HEMO FLAGS DIFF FINAL; LYMPH % 20.6 % (9.0-44.0); MEAN CELL VOLUME 90.5 FL (80.0-100.0); MEAN CORPUSCULAR HEMOGLOBIN 29.9 PG (27.0-34.0); MEAN CORPUSCULAR HGB CONC 33.1 % (32.0-36.0); MONO % 12.8 % (0.0-8.0); NEUT % 63.9 % (16.0-70.0); PLATELET COUNT 636 TH/MM3 (150-450); RED BLOOD COUNT 4.05 MIL/MM3 (4.50-5.90); RED CELL DISTRIBUTION WIDTH 13.1 % (11.6-17.2); WHITE BLOOD COUNT 14.6 TH/MM3 (4.0-11.0)
[2016-08-14 08:00] VITALS: BP_SYST 120; BP_SYST 128; BP_DIAS 63; BP_DIAS 69; PULSE 70; PULSE 88; RESP 16; TEMP 96.4; TEMP 97.3; O2SAT 96
[2016-08-14] MEDS: metFORMIN HCL 500 MG TAB PO SCH ×2 (08:16→16:32)
[2016-08-14] MEDS: cefTRIAXone INJ 1,000 MG in SODIUM CHLORIDE 0.9% INJ 100 ML IV SCH (11:11)
[2016-08-14 12:00] VITALS: BP 115/56; PULSE 67; RESP 16; TEMP 98.3; O2SAT 95
[2016-08-14 14:11] VITALS: O2SAT 97
--- NOTE | 2016-08-14 14:29 | HHI.PR ---
Subjective Remarks Follow-up for scrotal abscess Scrotal abscess improving, less tender, no discharge, afebrile. Patient noticed new left thigh abscess, mildly tender. Objective Vitals Vital Signs Date Time Temp Pulse Resp B/P Pulse Ox O2 Delivery O2 Flow Rate FiO2 08/14/16 14:11 97 21 08/14/16 12:00 98.3 67 16 115/56 95 08/14/16 08:00 97.3 70 16 128/63 96 08/14/16 00:00 98.2 76 20 142/90 99 08/13/16 20:00 97.8 80 20 139/94 98 08/13/16 16:00 98.4 70 16 122/60 95 I/O 08/13/16 08/13/16 08/13/16 08/14/16 08/14/16 08/14/16 07:00 15:00 23:00 07:00 15:00 23:00 Intake Total 700 ml 3275 ml 480 ml 1580 ml 795 ml Output Total 1600 ml 275 ml 750 ml 1300 ml Balance -900 ml 3000 ml -270 ml 280 ml 795 ml Intake Oral 700 ml 1400 ml 480 ml 580 ml IV Total 1875 ml 1000 ml 795 ml Output Urine Total 1600 ml 275 ml 750 ml 1300 ml # Voids 4 # Bowel Movements 0 0 0 0 Result Diagram: 08/14/16 0543 08/13/16 0351 Objective Remarks Not in distress Normal rate and regular rhythm, no murmurs gallops or rubs appreciated. Clear to auscultation and symmetric bilaterally, normal respiratory effort. Normal bowel sounds, soft, non-tender, nondistended, no guarding. Left thigh, about 2 cm induration, not fluctuant, mildly tender. AAO x3, no cranial nerve deficits, moves all 4 extremities, no focal neurologic deficits : less swollen scrotum , mild tenderness Procedures Status post incision and drainage of scrotal abscess 08/11/16 A/P Assessment and Plan This is a 46-year-old male presenting with scrotal abscess Sepsis secondary to Scrotal abscess- Status post incision and drainage per urology. Continue vancomycin and ceftriaxone. Vancomycin subtherapeutic, monitor vancomycin levels, BMP. CT scan of the pelvis versus a reviewed showed adenopathy nonspecific edema in the left scrotal sac. Continue Pain control with oral and intravenous narcotics. Follow-up wound culture results, mixed anaerobes. Urinalysis unremarkable, stop IVF. Blood culture grew Staphylococcus epidermidis, one out of 4 bottles, likely contaminant. Leukocytosis improving. However patient has a new left groin/thigh abscess, consult general surgery. Rule out bacteremia-repeat blood culture, initial blood culture grew Staphylococcus epidermidis, one out of 4 bottles, likely contaminant. Diabetes mellitus-hemoglobin A1c 6.2, continue metformin, sliding scale insulin. DVT prophylaxis: SCDs. Discharge Planning Discharge once cleared by urology and wound culture results are back. Daniel Gray MD Aug 14, 2016 14:29
[2016-08-14 16:00] VITALS: BP 128/63; PULSE 72; RESP 20; TEMP 97.9; O2SAT 93
[2016-08-14 20:00] VITALS: BP 170/92; PULSE 71; RESP 16; TEMP 97.3; O2SAT 99
[2016-08-14] MEDS: ENALAPRILAT 2.5 MG/2 ML VIAL IV PUSH PRN (20:19)
[2016-08-15] VITALS: BP 123/73; PULSE 75; RESP 18; TEMP 97.6; O2SAT 97
[2016-08-15] MEDS: SODIUM CHLOR 0.9% 1000 ML INJ 1,000 ML IV SCH ×2 (01:45→08:10)
[2016-08-15] MEDS ORDERED: PHARMACY ORDERED LAB XX ONE (05:45)
[2016-08-15] MEDS: INSULIN ASPART SUPPLEMENTAL SCALE SQ SCH ×3 (05:49→15:36)
[2016-08-15] MEDS: VANCOMYCIN INJ 2,000 MG in SODIUM CHLORID 0.9% 500 ML INJ 500 ML IV SCH ×2 (05:50→15:58)
[2016-08-15 08:00] VITALS: BP 184/91; PULSE 76; RESP 20; TEMP 98.7; O2SAT 98
[2016-08-15] MEDS: metFORMIN HCL 500 MG TAB PO SCH ×2 (08:10→16:01)
[2016-08-15] MEDS: ENALAPRILAT 2.5 MG/2 ML VIAL IV PUSH PRN (08:24)
[2016-08-15] MEDS: cefTRIAXone INJ 1,000 MG in SODIUM CHLORIDE 0.9% INJ 100 ML IV SCH (09:55)
--- NOTE | 2016-08-15 10:39 | HHI.PR ---
Subjective Remarks f/u scrotal abscess abscess no drainage, pain improving, no erythema, afebrile Objective Vitals Vital Signs Date Time Temp Pulse Resp B/P Pulse Ox O2 Delivery O2 Flow Rate FiO2 08/15/16 08:00 98.7 76 20 184/91 98 08/15/16 00:00 97.6 75 18 123/73 97 08/14/16 20:00 97.3 71 16 170/92 99 08/14/16 16:00 97.9 72 20 128/63 93 08/14/16 14:36 18 08/14/16 14:11 97 21 08/14/16 12:00 98.3 67 16 115/56 95 I/O 08/14/16 08/14/16 08/14/16 08/15/16 08/15/16 08/15/16 07:00 15:00 23:00 07:00 15:00 23:00 Intake Total 1580 ml 1755 ml 480 ml 1591 ml Output Total 1300 ml 875 ml 1025 ml 550 ml Balance 280 ml 880 ml -545 ml 1041 ml Intake Oral 580 ml 960 ml 480 ml 240 ml IV Total 1000 ml 795 ml 1351 ml Output Urine Total 1300 ml 875 ml 1025 ml 550 ml # Bowel Movements 0 1 0 0 Result Diagram: 08/14/16 0543 08/15/16 0407 Imaging Last Impressions Chest X-Ray 08/11/16 0823 Signed Impressions: Service Date/Time: Thursday, August 11, 2016 08:42 - CONCLUSION: No acute disease. No significant change has occurred. Cedric Cardozo MD Pelvis CT 08/11/16 0000 Signed Impressions: Service Date/Time: Thursday, August 11, 2016 10:40 - CONCLUSION: 1. Nonspecific bilateral inguinal adenopathy. 2. Nonspecific edema in the region of the left scrotal sac. Board Certified Radiologist. This report was verified electronically. Cedric Cardozo MD Objective Remarks Not in distress Normal rate and regular rhythm, no murmurs gallops or rubs appreciated. Clear to auscultation and symmetric bilaterally, normal respiratory effort. Normal bowel sounds, soft, non-tender, nondistended, no guarding. Left thigh, about 2 cm induration, not fluctuant, mildly tender. : less swollen scrotum , mild tenderness, iodoform in place. AAO x3, no cranial nerve deficits, moves all 4 extremities, no focal neurologic deficits Procedures Status post incision and drainage of scrotal abscess 08/11/16 A/P Assessment and Plan This is a 46-year-old male presenting with scrotal abscess Sepsis secondary to Scrotal abscess- Status post incision and drainage per urology. Continue vancomycin and ceftriaxone. Vancomycin subtherapeutic, monitor vancomycin levels, BMP. CT scan of the pelvis versus a reviewed showed adenopathy nonspecific edema in the left scrotal sac. Continue Pain control with oral and intravenous narcotics. Wound culture results, mixed anaerobes. Urinalysis unremarkable. Blood culture grew Staphylococcus epidermidis, one out of 4 bottles, likely contaminant. Blood cultures negative to date. Leukocytosis improving. However patient has a new left groin/thigh abscess, consult general surgery, pending input. Recheck CBC today. If blood culture and CBC still better, may switch antibiotics to Ceftin. Rule out bacteremia- initial blood culture grew Staphylococcus epidermidis, one out of 4 bottles, likely contaminant. Repeat blood culture negative to date, on vancomycin and ceftriaxone. Diabetes mellitus-hemoglobin A1c 6.2, continue metformin, sliding scale insulin. DVT prophylaxis: SCDs. Discharge Planning Discharge once cleared by surgery Daniel Gray MD Aug 15, 2016 10:39
[2016-08-15] MEDS ORDERED: OXYC1TAB63 PO (10:41)
[2016-08-15] MEDS ORDERED: METF500 PO (10:41)
[2016-08-15] MEDS ORDERED: CEFT500T3 PO (10:41)
[2016-08-15] MEDS ORDERED: ENALAPRILAT 1.25 MG/ML VIAL IV PUSH PRN (11:00)
[2016-08-15 12:00] VITALS: BP 155/82; PULSE 70; RESP 19; TEMP 96.7; O2SAT 98
[2016-08-15 13:15] LABS: AUTOMATED NEUTROPHIL # 9.8 TH/MM3 (1.8-7.7); BASOPHIL # 0.1 TH/MM3 (0-0.2); BASOPHIL % 0.9 % (0.0-2.0); EOSINOPHIL # 0.3 TH/MM3 (0-0.4); EOSINOPHIL % 1.9 % (0.0-4.0); HEMATOCRIT 37.1 % (39.0-51.0); HEMO FLAGS DIFF FINAL; LYMPH % 19.1 % (9.0-44.0); LYMPHOCYTE # 2.8 TH/MM3 (1.0-4.8); MEAN CELL VOLUME 90.4 FL (80.0-100.0); MEAN CORPUSCULAR HEMOGLOBIN 29.8 PG (27.0-34.0); MEAN CORPUSCULAR HGB CONC 32.9 % (32.0-36.0); NEUT % 67.1 % (16.0-70.0); PLATELET COUNT 668 TH/MM3 (150-450); RED CELL DISTRIBUTION WIDTH 13.2 % (11.6-17.2); WHITE BLOOD COUNT 14.6 TH/MM3 (4.0-11.0)
[2016-08-15 16:00] VITALS: BP 140/66; PULSE 70; RESP 17; TEMP 98.5; O2SAT 97
--- NOTE | 2016-08-15 16:59 | PD.CONS ---
cc: Oleg Starkey MD HPI Service General Surgery Consult Requested By Dr. Gray Reason for Consult LEFT thigh abscess Primary Care Physician [facility] History of Present Illness This is a 46 year old male with no past medical history who came to the ED for a scrotal abscess. The patient was taken to the OR by Dr. Diaz for incision and drainage. Once the scrotal edema decreased a LEFT thigh abscess was found. On exam the patient as a small opening in the abscess cavity and is spontaneously draining. The patient is currently afebrile with a decreasing white blood cell count. He desires to go home and states his mother can help him with the packing. Review of Systems Constitutional: DENIES: Fever, Weight gain, Weight loss Endocrine: DENIES: Polydipsia, Polyuria, Polyphagia Eyes: DENIES: Blurred vision, Diplopia Ears, nose, mouth, throat: DENIES: Tinnitus, Hearing loss Respiratory: DENIES: Apneas, Cough Cardiovascular: DENIES: Chest pain, Palpitations Gastrointestinal: DENIES: Abdominal pain, Constipation, Diarrhea Genitourinary: DENIES: Urinary frequency, Urinary incontinence, Urgency Musculoskeletal: DENIES: Joint pain, Muscle aches Integumentary: DENIES: Abnormal pigmentation Hematologic/lymphatic: DENIES: Bruising Immunologic/allergic: DENIES: Eczema Neurologic: DENIES: Headache, Localized weakness Psychiatric: DENIES: Confusion, Mood changes, Depression Past Family Social History Past Medical History None Past Surgical History Scrotal abscess drainage by Dr. Diaz (this admission) Scrotal abscess drainage by Dr. Schuster in 2014 Reported Medications See chart Allergies: Coded Allergies: No Known Allergies (Verified , 10/13/15) Active Ordered Medications Current Medications Medications (Trade) Dose Ordered Sig/Ryan Route Start Time Stop Time Status Last Admin Sodium Chloride 1,000 ml @ 75 mls/hr [id number] IV 08/11/16 09:45 08/15/16 08:10 (Rocephin Inj/NS Inj) 100 ml @ 200 mls/hr Q24H IV 08/11/16 11:15 08/15/16 09:55 (Tylenol) 650 mg Q6H PRN PO 08/11/16 11:15 (Roxicodone) 10 mg Q4H PRN PO 08/11/16 11:15 08/15/16 15:59 (Percocet 5-325 Mg) 1 tab Q6H PRN PO 08/11/16 11:15 (Morphine Inj) 4 mg Q3H PRN IV 08/11/16 11:15 08/14/16 08:52 (Narcan Inj) 0.4 mg UNSCH PRN IV 08/11/16 11:15 Enalaprilat 2.5 mg 2.5 mg Q6H PRN IV PUSH 08/11/16 11:15 08/15/16 08:24 (Vancomycin Consult Pharmacy) 0 ml @ 0 mls/hr UNSCH OTHER 08/11/16 11:15 Metformin HCl 500 mg 500 mg BIDPC PO 08/13/16 09:00 08/15/16 16:01 (Vancomycin Inj/ NS 500 ml Inj) 520 ml @ 257.5 mls/ hr Q12H IV 08/13/16 18:00 08/15/16 15:58 Miscellaneous Information SPECIFIC LAB TO BE DRAWN:VANCOMYCIN TROUGH DATE TO... ONCE ONCE XX 08/17/16 05:45 08/17/16 05:46 (Vasotec Inj) 1.25 mg Q6H PRN IV PUSH 08/15/16 11:00 Family History Non contributory Social History Smokes 3 cigarettes a day Denies ETOH use Denies illicit drug use Physical Exam Vital Signs Vital Signs Date Time Temp Pulse Resp B/P Pulse Ox O2 Delivery O2 Flow Rate FiO2 08/15/16 16:00 98.5 70 17 140/66 97 08/15/16 12:00 96.7 70 19 155/82 98 08/15/16 08:00 98.7 76 20 184/91 98 08/15/16 00:00 97.6 75 18 123/73 97 08/14/16 20:00 97.3 71 16 170/92 99 Physical Exam GENERAL: Alert resting in bed SKIN: Warm and dry. Scrotal abscess with packing present; LEFT thigh abscess opened with bloody non purulent drainage HEAD: Atraumatic. Normocephalic. EYES: Pupils equal and round. No scleral icterus. No injection or drainage. ENT: No nasal bleeding or discharge. Mucous membranes pink and moist. NECK: Trachea midline. CARDIOVASCULAR: Regular rate and rhythm. RESPIRATORY: No accessory muscle use. Clear to auscultation. Breath sounds equal bilaterally. GASTROINTESTINAL: Abdomen soft, non-tender, nondistended. MUSCULOSKELETAL: Extremities without clubbing, cyanosis, or edema. No obvious deformities. NEUROLOGICAL: Awake and alert. No obvious cranial nerve deficits. Motor grossly within normal limits. Five out of 5 muscle strength in the arms and legs. Normal speech. PSYCHIATRIC: Appropriate mood and affect; insight and judgment normal. Laboratory Laboratory Tests Test 08/15/16 08/15/16 08/15/16 04:07 05:46 12:28 Creatinine 0.89 Estimat Glomerular Filtration 112 Rate Vancomycin Level Trough 11.0 White Blood Count 14.6 Red Blood Count 4.10 Hemoglobin 12.2 Hematocrit 37.1 Mean Corpuscular Volume 90.4 Mean Corpuscular Hemoglobin 29.8 Mean Corpuscular Hemoglobin 32.9 Concent Red Cell Distribution Width 13.2 Platelet Count 668 Mean Platelet Volume 6.6 Neutrophils (%) (Auto) 67.1 Lymphocytes (%) (Auto) 19.1 Monocytes (%) (Auto) 11.0 Eosinophils (%) (Auto) 1.9 Basophils (%) (Auto) 0.9 Neutrophils # (Auto) 9.8 Lymphocytes # (Auto) 2.8 Monocytes # (Auto) 1.6 Eosinophils # (Auto) 0.3 Basophils # (Auto) 0.1 CBC Comment DIFF FINAL Differential Comment Date/Time Procedure Status Source Growth 08/13/16 09:56 Aerobic Blood Culture - Preliminary Resulted Blood Peripheral NO GROWTH IN 2 DAYS 08/13/16 09:56 Anaerobic Blood Culture - Preliminary Resulted Blood Peripheral NO GROWTH IN 2 DAYS 08/11/16 14:20 Gram Stain - Final Complete Abscess Scrotum 08/11/16 14:20 Wound Culture - Final Complete Mixed Anaerobes 08/11/16 14:20 Fungal Smear - Final Resulted Abscess Scrotum NO FUNGAL ELEMENTS SEEN. 08/11/16 14:20 Fungal Culture Resulted Abscess Scrotum Pending 08/11/16 14:20 Acid Fast Stain - Final Resulted Abscess Scrotum NO ACID FAST BACILLI SEEN 08/11/16 14:20 Mycobacterial Culture Resulted Abscess Scrotum Pending 08/11/16 08:45 Aerobic Blood Culture - Final Resulted Blood Peripheral Staphylococcus Epidermidis 08/11/16 08:45 Anaerobic Blood Culture - Preliminary Resulted Blood Peripheral NO GROWTH IN 4 DAYS Result Diagram: 08/15/16 1228 08/15/16 0407 Assessment and Plan Assessment and Plan 46 year old male with scrotal abscess and LEFT thigh abscess -Wound spontaneously draining---continue packing -PO antibiotics -Okay to DC home and follow up with Dr. Starkey in about 10-14 days -Instructed to come back to hospital if fevers occur or abscess starts to increase in size Discussed Condition With Dr. Starkey Mr. Viveros Attending Statement pt seen at bedside scrotal abscess s/p I and D pt also with posterior thigh abscess that is spontaneously draining tract appears to connect to the scrotal abscess currently I recommend to pack this tract separately agree with abx f/u with Dr. Starkey in 2 weeks Pt to return to the ED if fevers or increasing pain. Vero Vallejo Aug 15, 2016 16:59 Oleg Stakrey MD Aug 25, 2016 21:26
--- NOTE | 2016-08-15 18:02 | HHI.DS ---
Discharge Summary Admission Date Aug 11, 2016 at 10:26 Discharge Date: Aug 15, 2016 Admitting Diagnosis scrotal abscess, sepsis (1) Scrotal abscess ICD Code: N49.2 Procedures Status post incision and drainage of scrotal abscess 08/11/16 Brief History - From Admission This is a 46-year-old male with history of diabetes mellitus, hidradenitis suppurativa and previous scrotal abscess presenting with a four-day history of progressive scrotal pain. This started 4 days ago with a swollen centimeter bump which he thought was from a bug bite. 2 cm swelling progressively increased, double in size after 1 day, which caused difficulty walking associated with severe pain, 10 over 10, nonradiating, but when associated dizziness and syncopal episodes, chills, subjective fever and diaphoresis. He has a cough about 2 weeks ago which is better, no shortness of breath. He denies any urinary symptoms including hematuria, dysuria, frequency or urgency. Yesterday, left scrotal swelling became more painful, now about more than 6 cm and started draining hence patient decided to go to the hospital. Of note, he had a similar episode 3 years ago status post incision and drainage. CBC/BMP: 08/15/16 1228 08/15/16 0407 Significant Findings Laboratory Tests Test 08/14/16 08/15/16 08/15/16 05:43 05:46 12:28 White Blood Count 14.6 TH/MM3 14.6 TH/MM3 (4.0-11.0) (4.0-11.0) Red Blood Count 4.05 MIL/MM3 4.10 MIL/MM3 (4.50-5.90) (4.50-5.90) Hemoglobin 12.1 GM/DL 12.2 GM/DL (13.0-17.0) (13.0-17.0) Hematocrit 36.7 % 37.1 % (39.0-51.0) (39.0-51.0) Platelet Count 636 TH/MM3 668 TH/MM3 (150-450) (150-450) Monocytes (%) (Auto) 12.8 % 11.0 % (0.0-8.0) (0.0-8.0) Neutrophils # (Auto) 9.4 TH/MM3 9.8 TH/MM3 (1.8-7.7) (1.8-7.7) Monocytes # (Auto) 1.9 TH/MM3 1.6 TH/MM3 (0-0.9) (0-0.9) Vancomycin Level Trough 11.0 MCG/ML (5.0-10.0) Mean Platelet Volume 6.6 FL (7.0-11.0) PE at Discharge Not in distress Normal rate and regular rhythm, no murmurs gallops or rubs appreciated. Clear to auscultation and symmetric bilaterally, normal respiratory effort. Normal bowel sounds, soft, non-tender, nondistended, no guarding. Left thigh, about 2 cm induration, not fluctuant, mildly tender. : less swollen scrotum , mild tenderness, iodoform in place. AAO x3, no cranial nerve deficits, moves all 4 extremities, no focal neurologic deficits Hospital Course This is a 46-year-old male presenting with scrotal abscess. Patient was empirically started vancomycin and ceftriaxone. Urology was consulted, patient Status post incision and drainage per urology. Antibiotics were continued. CT scan of the pelvis versus a reviewed showed adenopathy nonspecific edema in the left scrotal sac. Wound culture results showed mixed anaerobes. Urinalysis unremarkable. Blood culture grew Staphylococcus epidermidis, one out of 4 bottles, likely contaminant. Repeat Blood cultures negative to date. Leukocytosis improving. However patient has a new left groin/thigh abscess, general surgery was consulted, recommendation is to follow up with him in 1-2 weeks. Patient will be discharge to finish 10-14 days of antibiotics with Ceftin. Patient was also started metformin for diabetes mellitus, hemoglobin A1c 6.2. Pt Condition on Discharge: Good Discharge Disposition: Discharge Home Discharge Time: > 30 minutes Discharge Instructions DIET: Follow Instructions for: Heart Healthy Diet, Diabetic Diet Activities you can perform: Regular-No Restrictions Follow up Referrals: Surgical - 10 Days with Oleg Starkey MD Urology - 1 Week New Medications: Cefuroxime (Ceftin) 500 Mg Tab 500 MG PO BID Infection #14 Ref 0 TAB Metformin (Glucophage) 500 Mg Tab 500 MG PO BIDPC DM #60 TAB Oxycodone-Acetaminophen (Oxycodone-Acetaminophen) 5-325 mg Tab 1 TAB PO Q6H PRN PAIN SCALE 3 TO 5 #30 TAB Daniel Gray MD Aug 15, 2016 18:02
[2016-08-17] MEDS ORDERED: PHARMACY ORDERED LAB XX ONE (05:45)
== END 2016-08-15 20:56 | disposition home or self-care (01) | DRG 854 ==
LOC: NEPC 07:53 → NEDA 10:26 → N07A 12:44
PROVIDERS: ADMIT Hospitalist; ATTEND Hospitalist
PROC: 0J9C0ZZ Drainage of Pelvic Region Subcutaneous Tissue and Fascia, Open Approach (ICD-10-PCS; principal; 2016-08-11 13:49)
DX: A41.9 Sepsis, unspecified organism (principal); L02.416 Cutaneous abscess of left lower limb; E11.9 Type 2 diabetes mellitus without complications; N49.2 Inflammatory disorders of scrotum; R00.0 Tachycardia, unspecified; E78.5 Hyperlipidemia, unspecified; F17.210 Nicotine dependence, cigarettes, uncomplicated; F12.90 Cannabis use, unspecified, uncomplicated; N50.89 Other specified disorders of the male genital organs
CPT/HCPCS: 71010; 72193; 80048; 80053; 80202; 81001; 82565; 82948; 83036; 83605; 85025; 86403; 87015; 87040; 87070; 87077; 87102; 87116; 87185; 87186; 87205; 87206; 96365; 96375; J0131; J0696; J1100; J1815; J2250; J2270; J2405; J2543; J2765; J3010; J3370; J7030; J7040; J7050; J7120; Q9967

== ENCOUNTER 2017-04-01 19:05 | Emergency (ER) | payer OTHER ==
[~2017-04-01 19:05] MED LIST changes: +CEFT500T3 PO; -DOXY100T PO; +METF500 PO; +OXYC1TAB63 PO
[2017-04-01 19:10] VITALS: BP 144/84; PULSE 86; RESP 16; TEMP 99.3; O2SAT 97
== END 2017-04-01 19:21 | disposition left against medical advice (07) ==
LOC: NED 19:05
DX: R22.9 Localized swelling, mass and lump, unspecified (principal); Z53.21 Procedure and treatment not carried out due to patient leaving prior to being seen by health care provider
CPT/HCPCS: 99281

== ENCOUNTER 2017-07-07 08:08 | Emergency (ER) | payer OTHER ==
[~2017-07-07] VITALS: Ht 177.8 cm; Wt 107.0 kg
[2017-07-07 08:09] VITALS: BP 181/104; PULSE 94; RESP 16; TEMP 98.3; O2SAT 99
[2017-07-07] MEDS ORDERED: KETOROLAC TROMETHAMINE 60 MG/2 ML (IM) VIAL IM ONE (08:45)
[2017-07-07] MEDS ORDERED: ORPHENADRINE INJ 60 MG/2 ML AMP IM ONE (08:45)
[2017-07-07] MEDS ORDERED: PRED20 PO (09:18)
[2017-07-07] MEDS ORDERED: ROBA500T PO (09:18)
--- NOTE | 2017-07-07 09:18 | PD ---
HPI Chief Complaint: Injury Time Seen by Provider: 08:24 Travel History International Travel<30 days: No Contact w/Intl Traveler<30days: No Traveled to known affect area: No History of Present Illness HPI 47-year-old male patient presents emergency department for evaluation of left arm pain 2 weeks. Patient states he was lifting heavy boxes at work approximately 2 weeks ago and felt like he pulled a muscle in his upper back. Shortly after the muscle pain resolved there was sharp, shooting pains radiating from his left lateral trapezius down to his left elbow. Patient denies any injuries, falls, traumas to the area. Left arm is neurovascularly intact. Full range of motion noted. Patient denies any fever, chills, malaise. Denies any incontinent of urine or stool. Denies any IV drug use. Patient denies chest pain, shortness breath, nausea, vomiting, diarrhea. No other physiological complaints at this time. PFSH Past Medical History Hx Anticoagulant Therapy: No Blood Disorders: No Heart Rhythm Problems: No Cancer: No Cardiovascular Problems: No High Cholesterol: Yes (DIET CONTROLLED) Chemotherapy: No Chest Pain: No Congestive Heart Failure: No Cerebrovascular Accident: No Diabetes: No Diminished Hearing: No Endocrine: No Genitourinary: No Immune Disorder: No Musculoskeletal: No Neurologic: No Psychiatric: No Reproductive: Yes (SCROTAL ABCESSES X 3 MOS) Respiratory: Yes Migraines: No Seizures: No Thyroid Disease: No Past Surgical History Abdominal Surgery: No Ear Surgery: No Endocrine Surgery: No Eye Surgery: No Genitourinary Surgery: No Gynecologic Surgery: No Hysterectomy: No Oral Surgery: Yes (TOOTH SURGERY) Thoracic Surgery: No Other Surgery: Yes (ID LEFT TESTICLE/ BACK SURGERY ) Social History Alcohol Use: No Tobacco Use: Yes (3 CIGG/ DAY) Substance Use: Yes (MJ OCCASIONAL) Allergies-Medications (Allergen,Severity, Reaction): Coded Allergies: No Known Allergies (Verified Adverse Reaction, Unknown, 07/07/17) Reported Meds & Prescriptions Reported Meds & Active Scripts Active Prednisone 20 Mg Tab 40 Mg PO DAILY 5 Days Take 40 mg (2 tablets) daily for 5 days Robaxin (Methocarbamol) 500 Mg Tab 500 Mg PO TID Ceftin (Cefuroxime Axetil) 500 Mg Tab 500 Mg PO BID Oxycodone-Acetaminophen 5-325 mg Tab 1 Tab PO Q6H PRN Glucophage (Metformin HCl) 500 Mg Tab 500 Mg PO BIDPC Review of Systems Except as stated in HPI: all other systems reviewed are Neg Physical Exam Narrative GENERAL: Well-nourished, well-developed 47-year-old male patient in no acute distress. Nontoxic appearing. SKIN: Focused skin assessment warm/dry. HEAD: Normocephalic. Traumatic. NEUROLOGICAL: Awake and alert. Cranial nerves II through XII intact. Motor and sensory grossly within normal limits. Five out of 5 muscle strength in all muscle groups. Normal speech. EYES: No scleral icterus. No injection or drainage. NECK: Supple, trachea midline. No JVD or lymphadenopathy. CARDIOVASCULAR: Regular rate and rhythm without murmurs, gallops, or rubs. RESPIRATORY: Breath sounds equal bilaterally. No accessory muscle use. GASTROINTESTINAL: Abdomen soft, non-tender, nondistended. MUSCULOSKELETAL: Full range of motion to the left upper extremity, neurovascularly intact. No obvious deformity, cyanosis, erythema, or edema. BACK: Left lateral trapezius pain that radiates down the left arm with a sharp sensation to palpation. Nontender without obvious deformity. No CVA tenderness. Data Data Last Documented VS Vital Signs Date Time Temp Pulse Resp B/P (MAP) Pulse Ox O2 Delivery O2 Flow Rate FiO2 07/07/17 08:09 98.3 94 16 181/104 (129) 99 Orders Orders Ketorolac Inj (Toradol Inj) (07/07/17 08:45) Orphenadrine Inj (Norflex Inj) (07/07/17 08:45) MDM Medical Decision Making Medical Screen Exam Complete: Yes Emergency Medical Condition: Yes Differential Diagnosis Differential diagnoses include but not limited to muscular strain, muscular spasm, cervical radiculopathy, nerve compression Narrative Course Patient's physical exam is consistent with cervical radiculopathy. Patient denies any injuries, falls, traumas therefore imaging was deferred at this time. Patient has no weakness in the left upper extremity and full range of motion noted. Patient given IM injection of Norflex and Toradol in our facility and discharged home with a prescription for prednisone and Robaxin. Patient given instructions to follow-up the neurosurgeon and to return to the emergency Department with any worsening condition. Diagnosis Primary Impression: Cervical radiculopathy Referrals: Neurosurgeon Primary Care Physician Patient Instructions: Cervical Radiculopathy (ED), General Instructions Additional Instructions: Please return to emergency department if your symptoms return or worsen. Follow up with your primary care provider. Take medications as prescribed. Med/Other Pt SpecificInfo: Prescription(s) given Scripts Prednisone (Prednisone) 20 Mg Tab 40 MG PO DAILY for 5 Days, #10 TAB 0 Refills Take 40 mg (2 tablets) daily for 5 days Prov: Savanna Durant 07/07/17 Methocarbamol (Robaxin) 500 Mg Tab 500 MG PO TID for Muscle Spasm, #15 TAB 0 Refills Prov: Savanna Durant 07/07/17 Disposition: 01 DISCHARGE HOME Condition: Stable Savanna Durant Jul 07, 2017 09:18
[2017-07-08] MEDS ORDERED: TIZA2TAB PO (11:52)
[2017-07-08] MEDS ORDERED: DEXA2TAB PO (11:52)
== END 2017-07-07 09:37 | disposition home or self-care (01) ==
LOC: NEPD 08:08
DX: M54.12 Radiculopathy, cervical region (principal); Z72.0 Tobacco use; X50.0XXA Overexertion from strenuous movement or load, initial encounter; Y93.89 Activity, other specified; Y99.0 Civilian activity done for income or pay
CPT/HCPCS: 96372; 99284; J1885; J2360

== ENCOUNTER 2017-07-08 07:58 | Emergency (ER) | payer OTHER ==
[~2017-07-08] VITALS: Ht 177.8 cm; Wt 107.0 kg
[~2017-07-08 07:58] MED LIST changes: +PRED20 PO; +ROBA500T PO
[2017-07-08 08:05] VITALS: BP 161/86; PULSE 91; RESP 14; TEMP 98.2; O2SAT 98
[2017-07-08] MEDS ORDERED: ORPHENADRINE INJ 60 MG/2 ML AMP IM ONE (08:30)
[2017-07-08] MEDS ORDERED: KETOROLAC TROMETHAMINE 60 MG/2 ML (IM) VIAL IM ONE (08:30)
--- NOTE | 2017-07-08 09:42 | PD ---
HPI Chief Complaint: Back/ Neck Pain or Injury Time Seen by Provider: 08:16 Travel History International Travel<30 days: No Contact w/Intl Traveler<30days: No Traveled to known affect area: No History of Present Illness HPI 47-year-old male complains of cervicalgia with numbness and tingling and pain in the left upper extremity. He has no weakness. Duration has been about one month with symptoms significantly worsening over the past week. He was seen here yesterday and sent home with Robaxin and steroids. He reports symptoms have remained unchanged. He has no chest pain or shortness of breath. He denies any recent injury or excessive work. He reports some pain and tenderness in the region of the trapezius on the left side. PFSH Past Medical History Hx Anticoagulant Therapy: No Blood Disorders: No Heart Rhythm Problems: No Cancer: No Cardiovascular Problems: No High Cholesterol: Yes (DIET CONTROLLED) Chemotherapy: No Chest Pain: No Congestive Heart Failure: No Cerebrovascular Accident: No Diabetes: No Diminished Hearing: No Endocrine: No Gastrointestinal Disorders: No Genitourinary: No Headaches: No Hypertension: No Immune Disorder: No Implanted Vascular Access Dvce: No Musculoskeletal: No Neurologic: No Psychiatric: No Reproductive: Yes (SCROTAL ABCESSES X 3 MOS) Respiratory: Yes Migraines: No Seizures: No Thyroid Disease: No Past Surgical History Abdominal Surgery: No Ear Surgery: No Endocrine Surgery: No Eye Surgery: No Genitourinary Surgery: No Gynecologic Surgery: No Hysterectomy: No Oral Surgery: Yes (TOOTH SURGERY) Thoracic Surgery: No Other Surgery: Yes (ID LEFT TESTICLE/ BACK SURGERY ) Social History Alcohol Use: No Tobacco Use: Yes (3 CIGG/ DAY) Substance Use: Yes (MJ OCCASIONAL) Allergies-Medications (Allergen,Severity, Reaction): Coded Allergies: No Known Allergies (Verified Adverse Reaction, Unknown, 07/08/17) Reported Meds & Prescriptions Reported Meds & Active Scripts Active Tizanidine (Tizanidine HCl) 2 Mg Tab 2 Mg PO TID 7 Days Dexamethasone 2 Mg Tab 2 Mg PO Q8HR 4 Days Prednisone 20 Mg Tab 40 Mg PO DAILY 5 Days Take 40 mg (2 tablets) daily for 5 days Robaxin (Methocarbamol) 500 Mg Tab 500 Mg PO TID Oxycodone-Acetaminophen 5-325 mg Tab 1 Tab PO Q6H PRN Glucophage (Metformin HCl) 500 Mg Tab 500 Mg PO BIDPC Review of Systems Except as stated in HPI: all other systems reviewed are Neg General / Constitutional: No: Fever Physical Exam Narrative GENERAL: Well-nourished 47-year-old male no acute distress SKIN: Warm and dry. HEAD: Atraumatic. Normocephalic. EYES: Pupils equal and round. No scleral icterus. No injection or drainage. ENT: No nasal bleeding or discharge. Mucous membranes pink and moist. NECK: Trachea midline. No JVD. CARDIOVASCULAR: Regular rate and rhythm. RESPIRATORY: No accessory muscle use. Clear to auscultation. Breath sounds equal bilaterally. GASTROINTESTINAL: Abdomen soft, non-tender, nondistended. Hepatic and splenic margins not palpable. MUSCULOSKELETAL: Minimal tenderness palpation left trapezius distribution. Range of motion normal. NEUROLOGICAL: A and O 3. Speech memory mentation normal. Cranial nerves III through XII normal. Moving all extremities normally hand manager production is equal bilaterally. There is some tenderness palpation in the region of the trapezius on the left side. PSYCHIATRIC: Appropriate mood and affect; insight and judgment normal. Data Data Last Documented VS Vital Signs Date Time Temp Pulse Resp B/P (MAP) Pulse Ox O2 Delivery O2 Flow Rate FiO2 07/08/17 13:28 76 18 134/72 (92) 98 07/08/17 08:05 98.2 Vital signs reviewed Orders Orders Mri C Spine W/O Contrast (07/08/17 08:24) Orphenadrine Inj (Norflex Inj) (07/08/17 08:30) Ketorolac Inj (Toradol Inj) (07/08/17 08:30) Dexamethasone (Decadron) (07/08/17 12:00) Ed Discharge Order (07/08/17 11:52) [facility] Medical Decision Making Medical Screen Exam Complete: Yes Emergency Medical Condition: Yes Medical Record Reviewed: Yes Differential Diagnosis Cervical radiculopathy, epidural abscess, stroke, paresthesia Narrative Course Last 24 hours Impressions Cervical Spine MRI 07/08/17823 Signed Impressions: Service Date/Time: Saturday, July 08, 2017 09:50 - CONCLUSION: Mild multilevel disc protrusions. Left-sided radicular symptoms felt most probably related to left paracentral protrusion at C6-7. Correlation recommended. Thyroid nodule. Recommend sonography for further characterization. Manolo Richard MD PT had a good response to pain interventions here. MRI impression reviewed with Dr Tobin Pt will follow up with Dr Tobin this week Scripts as below Diagnosis Primary Impression: Cervical radiculopathy Additional Impression: Protrusion of cervical intervertebral disc Referrals: Ricky Tobin MD 2 days Med/Other Pt SpecificInfo: Prescription(s) given Scripts Tizanidine (Tizanidine) 2 Mg Tab 2 MG PO TID for Muscle Spasm for 7 Days, TAB 0 Refills Prov: Zaid Harvey MD 07/08/17 Dexamethasone (Dexamethasone) 2 Mg Tab 2 MG PO Q8HR for 4 Days, #12 TAB 0 Refills Prov: Zaid Harvey MD 07/08/17 Disposition: 01 DISCHARGE HOME Condition: Stable Zaid Harvey MD Jul 08, 2017 09:42
[2017-07-08 10:05] VITALS: RESP 18
--- NOTE | 2017-07-08 10:36 | RADRPT ---
EXAM DATE/TIME: 07/08/2017 09:50 [facility] COMPARISON: No previous studies available for comparison. INDICATIONS : Radiculopathy. Neck pain and left arm numbness for 2 weeks. No known injury. MEDICAL HISTORY : None. SURGICAL HISTORY : Discectomy, lumbar. ENCOUNTER: Initial ACUITY: 2 weeks PAIN SCORE: 4/10 LOCATION: neck. TECHNIQUE: Multiplanar, multisequence MRI examination of the cervical spine was performed. FINDINGS: VERTEBRAE: Normal vertebral body height. Homogeneous marrow signal. ALIGNMENT: No evidence of subluxation. CORD: Normal configuration and signal. POST FOSSA: The cerebellar tonsils are normal in position. C2-C3: The thecal sac has a normal configuration. There is no evidence of disc herniation or spinal canal s tenosis. The neural foramina are patent bilaterally. C3-C4: The thecal sac has a normal configuration. There is no evidence of disc herniation or spinal canal s tenosis. The neural foramina are patent bilaterally. C4-C5: Mild asymmetrically right-sided uncovertebral osteophytic spurring. It produces mild asymmetric right -sided foraminal narrowing. Canal is adequate. C5-C6: Tiny central disc protrusion minimally indenting the ventral thecal sac. Canal and foramina appear ad equate C6-C7: Mild broad central to left paracentral disc protrusion slightly effacing the ventral thecal sac and l eft lateral recess. Mild degree of associated canal stenosis. Neural foramina appear adequate. C7-T1: Broad mild undulating dorsal disc protrusion, broadly asymmetric to the right with slight effacement of right lateral recess and mild asymmetry right-sided foraminal stenosis. Canal is adequate. Elsewhere on the exam, note is made of a 2 cm nodule in the thyroid isthmus just right of midline. Fu rther evaluation with thyroid sonography suggested. CONCLUSION: Mild multilevel disc protrusions. Left-sided radicular symptoms felt most probably related to left pa racentral protrusion at C6-7. Correlation recommended. Thyroid nodule. Recommend sonography for further characterization. Manolo Richard MD on July 08, 2017 at 10:26 Board Certified Radiologist. This report was verified electronically.
[2017-07-08] MEDS ORDERED: DEXA2TAB PO (11:52)
[2017-07-08] MEDS ORDERED: TIZA2TAB PO (11:52)
[2017-07-08] MEDS ORDERED: DEXAMETHASONE 6 MG TAB PO ONE (12:00)
[2017-07-08 13:28] VITALS: BP 134/72
== END 2017-07-08 13:30 | disposition home or self-care (01) ==
LOC: NEPE 07:58
DX: M54.12 Radiculopathy, cervical region (principal); M50.223 Other cervical disc displacement at C6-C7 level; R20.0 Anesthesia of skin; M79.602 Pain in left arm; Z72.0 Tobacco use
CPT/HCPCS: 72141; 96372; 99284; J1885; J2360; J8540